=== PATIENT | female | born 1990 | race Caucasian/White ===

== ENCOUNTER 2016-08-26 13:48 | Emergency (ER) | payer SELFPAY ==
[~2016-08-26] VITALS: Ht 167.6 cm; Wt 77.0 kg
[~2016-08-26 13:48] MED LIST: NAPR550 PO; PREN0.01 PO; SENN1TAB11 PO
[2016-08-26 13:53] VITALS: BP 115/86; PULSE 111; RESP 16; TEMP 99.2; O2SAT 96
[2016-08-26] MEDS ORDERED: TRI-TAB (13:58)
--- NOTE | 2016-08-26 14:26 | PD ---
HPI Chief Complaint: Cold / Flu Symptoms Time Seen by Provider: 14:13 Travel History International Travel<30 days: No Contact w/Intl Traveler<30days: No Traveled to known affect area: No History of Present Illness HPI 26yo F with no PMH presents to the ED with c/o cough, nasal congestion and throat pain for 2 days. States that coughing started first and then her throat started to hurt. Denies any fever but decreased oral intake because she is coughing so much. Denies any drooling, ear pain, chest pain, sob, n/v, abdominal pain. PFSH Past Medical History Blood Disorders: No Diminished Hearing: No Tetanus Vaccination: < 5 Years Influenza Vaccination: No ?: Not LMP: 08/16/16 Past Surgical History Oral Surgery: Yes Social History Alcohol Use: No Tobacco Use: No Substance Use: No Allergies-Medications (Allergen,Severity, Reaction): Coded Allergies: No Known Allergies (Verified , 08/26/16) Reported Meds & Prescriptions Reported Meds & Active Scripts Active Reported Tri-Sprintec (Norgestimate-Ethinyl Estradiol) 0.18/0.215/0.25 Mg-35 Mcg Tab Review of Systems Except as stated in HPI: all other systems reviewed are Neg Physical Exam Narrative GENERAL: 26yo F not in distress. SKIN: Warm and dry. HEAD: Atraumatic. Normocephalic. EYES: Pupils equal and round. No scleral icterus. No injection or drainage. ENT: Nose: Increased left nasal turbinate edema. NECK: Trachea midline. No JVD. CARDIOVASCULAR: Regular rate and rhythm. No murmur appreciated. RESPIRATORY: No accessory muscle use. Clear to auscultation. Breath sounds equal bilaterally. GASTROINTESTINAL: Abdomen soft, non-tender, nondistended. Hepatic and splenic margins not palpable. MUSCULOSKELETAL: No obvious deformities. No clubbing. No cyanosis. No edema. NEUROLOGICAL: Awake and alert. No obvious cranial nerve deficits. Motor grossly within normal limits. Normal speech. PSYCHIATRIC: Appropriate mood and affect; insight and judgment normal. Data Data Last Documented VS Vital Signs Date Time Temp Pulse Resp B/P Pulse Ox O2 Delivery O2 Flow Rate FiO2 08/26/16 13:53 99.2 111 16 115/86 96 Orders Influenzae A/B Antigen (08/26/16 14:10) Chest, Pa & Lat (08/26/16 ) Acetaminophen 650 Mg/20 Ml Liq (Tylenol (08/26/16 14:45) Guaifen-Cod 200-20 Mg/10ml Liq (Robituss (08/26/16 14:45) MDM Medical Decision Making Medical Screen Exam Complete: Yes Emergency Medical Condition: Yes Interpretation(s) Last Impressions Chest X-Ray 08/26/16 0000 Signed Impressions: Service Date/Time: August 14:48 - CONCLUSION: No acute disease. Diego Villalta MD Differential Diagnosis URI vs. bronchitis vs. post nasal drip vs. pneumonia Narrative Course 26yo F with URI like symptoms. CXR showed no acute disease. Pt given acetaminophen and robitussin and feels a little better. Influenza negative. Return precautions given. Diagnosis Primary Impression: URI (upper respiratory infection) Qualified Code: J06.9 - Upper respiratory tract infection, unspecified type Patient Instructions: General Instructions Departure Forms: Tests/Procedures Additional Instructions: Please follow up with your PMD in 3-7 days. Return to the ED if symptoms worsen. Med/Other Pt SpecificInfo: Prescription(s) given Scripts Acetaminophen Liq (Acetaminophen Extra Strength Liq)500 Mg/15 Ml [id number] Mg PO Q6HR PRN (PAIN SCALE 1 TO 4) 5 Days Ref 0 Prov:Mey Tracey DO 08/26/16 Dextromethorphan Polistirex Liq (Robitussin 12 Hour Cough Liq)30 Mg/5 Ml Sus10 Ml PO Q12H PRN (COUGH) 5 Days Ref 0 Prov:Mey Tracey DO 08/26/16 Disposition: 01 DISCHARGE HOME Condition: Stable Mey Tracey DO Aug 26, 2016 14:26
[2016-08-26] MEDS ORDERED: guaiFENesin/CODEINE SYRUP 200 MG/20 MG/10 ML CUP PO ONE (14:45)
[2016-08-26] MEDS ORDERED: ACETAMINOPHEN 650 MG/20.3 ML UDC PO ONE (14:45)
--- NOTE | 2016-08-26 15:02 | RADHPO ---
EXAM DATE/TIME: 08/26/2016 14:48 [facility] COMPARISON: No previous studies available for comparison. INDICATIONS : Cough, congestion, sore throat, cold symptoms for 3 days MEDICAL HISTORY : None. SURGICAL HISTORY : None. ENCOUNTER: Initial ACUITY: 3 days PAIN SCORE: 2/10 LOCATION: Bilateral chest FINDINGS: PA and lateral views of the chest demonstrate the lungs to be symmetrically aerated without evidence of mass, infiltrate or effusion. The cardiomediastinal contours are unremarkable. Osseous structure s are intact. CONCLUSION: No acute disease. Diego Villalta MD on August 26, 2016 at 15:00 Board Certified Radiologist. This report was verified electronically.
[2016-08-26] MEDS ORDERED: DEXT1SUS PO (15:37)
[2016-08-26] MEDS ORDERED: ACET500L PO (15:37)
[2016-08-26 15:44] VITALS: BP 116/82; PULSE 105; RESP 18; O2SAT 97
== END 2016-08-26 15:52 | disposition home or self-care (01) ==
LOC: PHEFT 13:48
DX: J06.9 Acute upper respiratory infection, unspecified (principal)
CPT/HCPCS: 71020; 87804; 99283

== ENCOUNTER 2016-11-07 14:12 | Emergency (ER) | payer OTHER ==
[~2016-11-07] VITALS: Ht 170.2 cm; Wt 80.0 kg
[~2016-11-07 14:12] MED LIST changes: +ACET500L PO; +DEXT1SUS PO; -NAPR550 PO; -PREN0.01 PO; -SENN1TAB11 PO; +TRI-TAB
[2016-11-07 14:28] VITALS: BP 151/85; PULSE 95; RESP 18; TEMP 98.5; O2SAT 99
--- NOTE | 2016-11-07 14:48 | PD ---
HPI Chief Complaint: Psychiatric Symptoms Time Seen by Provider: 14:40 Travel History International Travel<30 days: No Contact w/Intl Traveler<30days: No Traveled to known affect area: No History of Present Illness HPI Patient comes in under a Gutierrez act by police for making threats of self-harm via text message to her sister earlier today. Patient states that she texted that her sister that she cut her wrist, throat, and stabbed herself in the stomach but did not do these. Patient states she had no intention of doing any of this. Patient states she tried harming herself once when she was a teenager by cutting her wrist at the advice of a friend and was Gutierrez acted at that time but has had no other attempts. Patient states she use to be on psychiatric medications but has not been on them for a while. Patient denies any homicidal or suicidal ideations at this time. Patient states she is just upset as she has not been able to see her daughter and only has visitation rights once a week currently as her parents have temporary custody. Patient states it was just getting to her today especially with other people talking about how much they enjoy spending time with their own daughters. Patient denies any medical concerns this time. Denies any chest pain, shortness of breath, abdominal pain , fevers, nausea, vomiting, or . PFSH Past Medical History Blood Disorders: No Diminished Hearing: No Psychiatric: Yes ?: Not LMP: now Past Surgical History Oral Surgery: Yes Social History Alcohol Use: No Tobacco Use: No Substance Use: No Allergies-Medications (Allergen,Severity, Reaction): Coded Allergies: No Known Allergies (Verified , 08/26/16) Reported Meds & Prescriptions Reported Meds & Active Scripts Active Acetaminophen Extra Strength Liq (Acetaminophen) 500 Mg/15 Ml Soln 500 Mg PO Q6HR PRN 5 Days Robitussin 12 Hour Cough Liq (Dextromethorphan Polistirex Liq) 30 Mg/5 Ml Michelle 10 Ml PO Q12H PRN 5 Days Reported Tri-Sprintec (Norgestimate-Ethinyl Estradiol) 0.18/0.215/0.25 Mg-35 Mcg Tab Review of Systems Except as stated in HPI: all other systems reviewed are Neg Physical Exam Narrative GENERAL: Well-developed, overly nourished, in no acute distress, and non-ill appearing. SKIN: Focused skin assessment warm and dry. HEAD: Atraumatic. Normocephalic. EYES: Pupils equal and round. EOMI. No scleral icterus. No injection or drainage. ENT: No nasal bleeding or discharge. Mucous membranes pink and moist. NECK: Trachea midline. Supple. No nuclear rigidity. CARDIOVASCULAR: Regular rate and rhythm. No murmur appreciated. RESPIRATORY: No accessory muscle use. No respiratory distress. Clear to auscultation. Breath sounds equal bilaterally. GASTROINTESTINAL: Abdomen soft, non-tender, nondistended. Hepatic and splenic margins not palpable. No pulsatile mass. MUSCULOSKELETAL: No obvious deformities. No clubbing. No cyanosis. No edema. Full range of motion. NEUROLOGICAL: Awake and alert. No obvious cranial nerve deficits. Motor grossly within normal limits. Normal speech. PSYCHIATRIC: Insight and judgment normal. Tearful on exam. Data Data Last Documented VS Vital Signs Date Time Temp Pulse Resp B/P Pulse Ox O2 Delivery O2 Flow Rate FiO2 11/07/16 14:54 85 18 11/07/16 14:54 97.9 163/73 100 Room Air Orders Complete Blood Count With Diff (11/07/16 14:27) Comprehensive Metabolic Panel (11/07/16 14:27) Urinalysis - C+S If Indicated (11/07/16 14:27) Ed Urine Pregnancytest Poc (11/07/16 14:27) Psych Screen (11/07/16 14:27) Drug Screen, Random Urine (11/07/16 14:27) Alcohol (Ethanol) (11/07/16 14:27) Salicylates (Aspirin) (11/07/16 14:27) Tylenol (Acetaminophen) (11/07/16 14:27) Urine Culture (11/07/16 14:50) Labs Laboratory Tests Test 11/07/16 11/07/16 11/07/16 14:40 14:45 14:50 White Blood Count 7.2 TH/MM3 Red Blood Count 4.57 MIL/MM3 Hemoglobin 13.5 GM/DL Hematocrit 40.6 % Mean Corpuscular Volume 89.0 FL Mean Corpuscular Hemoglobin 29.5 PG Mean Corpuscular Hemoglobin 33.1 % Concent Red Cell Distribution Width 12.7 % Platelet Count 227 TH/MM3 Mean Platelet Volume 8.5 FL Neutrophils (%) (Auto) 55.9 % Lymphocytes (%) (Auto) 31.7 % Monocytes (%) (Auto) 8.6 % Eosinophils (%) (Auto) 2.7 % Basophils (%) (Auto) 1.1 % Neutrophils # (Auto) 4.0 TH/MM3 Lymphocytes # (Auto) 2.3 TH/MM3 Monocytes # (Auto) 0.6 TH/MM3 Eosinophils # (Auto) 0.2 TH/MM3 Basophils # (Auto) 0.1 TH/MM3 CBC Comment DIFF FINAL Differential Comment Sodium Level 140 MEQ/L Potassium Level 3.8 MEQ/L Chloride Level 108 MEQ/L Carbon Dioxide Level 24.2 MEQ/L Anion Gap 8 MEQ/L Blood Urea Nitrogen 7 MG/DL Creatinine 0.62 MG/DL Estimat Glomerular Filtration 115 ML/MIN Rate Random Glucose 103 MG/DL Calcium Level 9.5 MG/DL Total Bilirubin 0.5 MG/DL Aspartate Amino Transf 41 U/L (AST/SGOT) Alanine Aminotransferase 154 U/L (ALT/SGPT) Alkaline Phosphatase 112 U/L Total Protein 7.3 GM/DL Albumin 3.6 GM/DL Acetaminophen Level LESS THAN 2.0 MCG/ML Ethyl Alcohol Level LESS THAN 3 MG/DL Salicylates Level LESS THAN 1.7 MG/DL Urine Color YELLOW Urine Turbidity HAZY Urine pH 7.0 Urine Specific [place] 1.017 Urine Protein NEG mg/dL Urine Glucose (UA) NEG mg/dL Urine Ketones NEG mg/dL Urine Occult Blood MOD Urine Nitrite NEG Urine Bilirubin NEG Urine Urobilinogen LESS THAN 2.0 MG/DL Urine Leukocyte Esterase MOD Urine RBC 2 /hpf Urine WBC 8 /hpf Urine Squamous Epithelial 3 /hpf Cells Urine Bacteria RARE /hpf Urine Mucus FEW /lpf Microscopic Urinalysis Comment CULTURE INDICATED Urine Opiates Screen NEG Urine Barbiturates Screen NEG Urine Amphetamines Screen NEG Urine Benzodiazepines Screen NEG Urine Cocaine Screen NEG Urine Cannabinoids Screen NEG MDM Medical Decision Making Medical Screen Exam Complete: Yes Emergency Medical Condition: Yes Differential Diagnosis Homicidal, suicidal, depression, adjustment disorder, likely abnormality, other Narrative Course Patient was seen and examined. Labs were obtained and reviewed. I suspect the white blood cells noted in the urine is contaminated single patient being on her menstrual cycle, will await culture prior to treating. I discussed patient' s slightly elevated liver enzymes with her and she is to follow-up with her primary care doctor and/or GI specialist outpatient for reevaluation of these this patient has no symptoms. Patient verbalized understanding of this and agreement follow-up outpatient. Patient medically cleared for further treatment and evaluation by psych. Final disposition per psych. Diagnosis Primary Impression: LFT elevation Additional Instructions: Follow-up with your primary care physician and/or GI doctor this week for reevaluation or slightly elevated liver enzymes. Avoid Tylenol and alcohol until reevaluated. Return to the emergency department if symptoms get worse. Condition: Stable Antonio Leyva November 07, 2016 14:48
[2016-11-07 14:54] VITALS: BP 163/73; PULSE 78; RESP 18; TEMP 97.9; O2SAT 100
[2016-11-07 14:58] LABS: BASOPHIL # 0.1 TH/MM3 (0-0.2); BASOPHIL % 1.1 % (0.0-2.0); EOSINOPHIL # 0.2 TH/MM3 (0-0.4); EOSINOPHIL % 2.7 % (0.0-4.0); HEMATOCRIT 40.6 % (35.0-46.0); HEMO FLAGS DIFF FINAL; LYMPH % 31.7 % (9.0-44.0); LYMPHOCYTE # 2.3 TH/MM3 (1.0-4.8); MEAN CORPUSCULAR HEMOGLOBIN 29.5 PG (27.0-34.0); MEAN CORPUSCULAR HGB CONC 33.1 % (32.0-36.0); MONO % 8.6 % (0.0-8.0); NEUT % 55.9 % (16.0-70.0); PLATELET COUNT 227 TH/MM3 (150-450); RED BLOOD COUNT 4.57 MIL/MM3 (4.00-5.30); RED CELL DISTRIBUTION WIDTH 12.7 % (11.6-17.2); WHITE BLOOD COUNT 7.2 TH/MM3 (4.0-11.0)
[2016-11-07 15:18] LABS: ALT (GPT) 154 U/L (10-53); ANION GAP 8 MEQ/L (5-15); AST (GOT) 41 U/L (15-37); BICARBONATE 24.2 MEQ/L (21.0-32.0); BLOOD UREA NITROGEN 7 MG/DL (7-18); CHLORIDE 108 MEQ/L (98-107); GLOMERULAR FILTRATION RATE 115 ML/MIN (>89); POTASSIUM 3.8 MEQ/L (3.5-5.1); SODIUM (NA) 140 MEQ/L (136-145)
[2016-11-07 15:21] LABS: ALKALINE PHOSPHATASE 112 U/L (45-117); TOTAL BILIRUBIN ADULT 0.5 MG/DL (0.2-1.0)
[2016-11-07 15:28] LABS: BACTERIA, URINE RARE /hpf; BLOOD, URINE MOD (NEG); COMMENT (UR) CULTURE INDICATED; CULTURE IF INDICATED CULTURE INDICATED; GLUCOSE,URINE NEG (NEG); KETONE, URINE NEG (NEG); MUCUS URINE FEW /lpf (OCC); NITRITE,URINE NEG (NEG); SQUAMOUS EPITHELIAL CELL URINE 3 /hpf (0-5); URINE COLOR YELLOW (YELLW/STRAW)
[2016-11-07 15:31] LABS: AMPHETAMINE, URINE NEG (NEG); BARBITURATES, URINE NEG (NEG); COCAINE, URINE NEG (NEG)
[2016-11-07 15:32] LABS: ACETAMINOPHEN LESS THAN 2.0 MCG/ML (10.0-30.0)
[2016-11-07 22:00] VITALS: BP 117/64; PULSE 79; RESP 18; O2SAT 98
== END 2016-11-08 03:52 ==
LOC: NEPE 14:12 → NEPJ 11-08 03:52
DX: R74.8 Abnormal levels of other serum enzymes (principal); R82.90 Unspecified abnormal findings in urine; Z63.8 Other specified problems related to primary support group
CPT/HCPCS: 80053; 80307; 81001; 84703; 85025; 87086; 99284